=== PATIENT | male | born 1970 | race Caucasian/White ===

== ENCOUNTER 2023-01-27 04:39 | Inpatient (IN) | payer MEDICARE, SELFPAY ==
[2023-01-27 04:49] VITALS: BP 125/88; PULSE 77; RESP 20; TEMP 36.5; O2SAT 99
[2023-01-27 05:19] VITALS: BMI 19.3
--- NOTE | 2023-01-27 05:45 | PC.ADMIT ---
[email or web address] [facility] Admission Note: The patient,Giuliano Lorenzo,52 y/o, was given written information regarding hospital policies, unit procedures and contact persons. Patient's smoking status: . Vital Signs - 8 hr 01/27/23 04:48 01/27/23 04:49 01/27/23 05:25 Temperature 97.7 F Pulse Rate 77 Respiratory Rate 20 H Blood Pressure 125/88 Pulse Oximetry 99 DIRECT ADMIT FROM [facility], TRANSPORTED VIA EMS TO NPU AT 0437. PT IS VOLUNTARY WITH AFFIDAVIT ON FILE. ON ADMISSION PT VERBALIZED THE NAME WAS INCORRECT. PT STATES SHE HAD HER NAME CHANGED FROM LAYTON TO GIULIANO YEARS AGO AND IS TRANSGENDER AND PREFERS SHE,HER PRONOUNS. PT STATES YESTERDAY SHE WAS UNABLE TO GET [facility] OUT OF THE BANK DUE TO NOT HAVING AN ID AND BECAME VERY FRUSTRATED AND WANTED TO DESTROY US BANK. PT ALSO REPORTS SHE HAD INCREASED AND INTENSE FEELINGS OF SUICIDE AND HAD A PLAN TO GO TO [facility] AND JUMP OFF IT TO END HER LIFE. PT REPORTS HER GRANDSON IS IN FOSTER CARE AND SHE IS HAVING A LOT OF LIFE STRESSORS. PT STATES [place]OM[place] THE [place]ST [place]ARS AND JUST GOT BACK TO [place] A WEEK AGO. PT REPORTS USING THC AND METH IN HER PAST BUT ONLY USES MARIJAUNA OCCASSIONALLY NOW,LAST USE 5 DAYS AGO, UDS POSITIVE FOR THC. PT CONTINUES TO ENDORSE SI WITH NO CURRENT PLAN, STATES SHE JUST WANTS TO GET HELP. DENIES HI AND VH ENDORSES AH, HEARS HER BROTHERS VOICE AND SOMETIME HE TALKS TO HER. PT HAS NKDA AND TAKES NO MEDICATIONS ON A ROUTINE BASIS. LAST BM WAS 01/26/23, DENIES PAIN. SKIN ASSESSMENT REVEALS MULTIPLE TATTOOS, NO SKIN ISSUES OBSERVED. PT STATES SHE HAS BEEN DIAGNOSED WITH BIPOLAR, ANXIETY, DEPRESSION AND SCHITZOAFFECTIVE DISORDER IN HER PAST. REPORTS MULTIPLE PSYCHIATRIC ADMISSIONS AT THE [facility] [place], THE LAST ADMISSION BEING 6-8 MONTHS AGO. RATES ANXIETY 8/10 AND DEPRESSION 8/10. MADE AWARE OF PT ARRIVAL, NEW ORDERS WERE RECEIVED. PT WAS ORIENTATED TO UNIT. VISTARIL 50 MG WAS GIVEN ORDERED FOR INCREASED ANXIETY. ALL QUESTIONS ANSWERED AND SUPPORT WAS VOICED. Oxygen Delivery Method Room Air Room Air Room Air
--- NOTE | 2023-01-27 10:01 | PC.NURSE ---
Patient denies avh this morning. Patient endorses feeling of worthlessness and not wanting to live, but says she would not act on it. She says she does feel homicidal towards political figures because she has seen a lot as a homeless person in [place] and feels the system is not doing its job and doesn't care. However, patient does say she would never actually harm someone. Denies any current needs at this time and says she does feel better this morning because she feels safe here.
--- NOTE | 2023-01-27 13:36 | P.NPUHP_ITS ---
Providers/Chief Complaint Admitting Physician: George Dunaway MD Chief Complaint: SI HPI NPU History of Present Illness Hever Lorenzo is a 52 year old transgender female who presented to the emergency department at [facility] in [facility] after the patient had been brought in by police as he had been found to be suicidal. The patient had stated that he was going to walk over to the [place] and throw himself off of the bridge and onto a truck but stated that he would rather go to the hospital instead. The patient was transferred to the neuropsychiatric unit and [facility] in [facility] for further evaluation and treatment. He reports that he had a significant argument with his daughter and was frustrated when he went to a bank and was only able to take out $50 and became increasingly frustrated to the point that he felt like he was going to end his life. He reports a history of mood swings and endorsed a past history of manic symptoms. He endorses a history of racing thoughts decreased need for sleep and intense periods of irritability. He also reports a history of depressed mood with reports of previous episodes of depression. He reports that he had previously been diagnosed with bipolar disorder and had not been on medications for several years. Patient reports that he had previously used methamphetamine to stay awake but states that he stopped using several months ago. He reports recently moving back to [place] after spending the last 2 years living in [place] where he was frequently homeless. Patient endorses current sleep continuity disruption. He reports a history of infrequent suicidal thoughts as well. He reports that the best medication that it ever helped him in the past was lithium. He endorses having periods where he has intense bursts of high energy with diminished need for sleep and intense grandiose ideas that may last up to a week. His reported having bipolar disorder for many years of his life. Inpatient hospitalizations: He reports several hospitalizations in adulthood including many recent hospitalizations and [facility] and also reports previously of having been hospitalized in [facility] more than 2 years ago. He had reported a history of suicide attempts. He had reported previous diagnosis of bipolar disorder. Outpatient psychiatric history: None currently Drug and alcohol history: He reports no active drug use although he had reported having used methamphetamine in the past and reports active cannabis use. He reports no history of drug or alcohol treatment. Medical history: None Surgical history: None Allergies: No known drug allergies history: The patient received honorable discharge and served time in the [place] from [id number]. Family psychiatric history: Unknown Current medications: None Social history: Patient was born in [facility] and raised by his biological parents until his parents at the age of 12. He had reported having graduated from [employer] to high school and had attended some college. He had also finished attending [employer]. He is reported to be identified as a transgender female. He reports having previously been and currently lives with his ex- and has a 23-year-old daughter who has significant addiction issues. He did not report any history of sexual physical or emotional abuse. He reports he is currently on disability for some medical issues associated with mercury exposure during his time service. Meds NPU Home Medications Medication Instructions Recorded Confirmed Last Taken Type No Known Home Medications 01/27/23 01/27/23 Unknown History Allergies Allergy/AdvReac Type Severity Reaction Status Date / Time No Known Allergies Allergy Verified 01/27/23 04:56 Mental Status Exam MSE Comments: He is a casually dressed thin white male who appeared his stated age. He was pleasant and cooperative on interview. His speech showed evidence of increased pressure, with normal volume. There was no evidence of any abnormal involuntary motor movements tics or tremors appreciated. There is no evidence of psychomotor agitation or psychomotor retardation. His mood was described as depressed. His affect appeared oddly labile with some periods of increased euphoria. His thought process was linear logical and goal-directed. His thought content showed no evidence of active homicidal ideation. He had endorsed suicidal ideation with a plan. He did not appear to be responding to internal stimuli. There was no clear evidence of delusional thinking. There was a hint of mild grandiosity and some overvalued ideas noted. His insight was partial. His judgment was poor. His impulse control appeared limited. His recent and remote memory appear grossly intact. Vitals/I&O/Wt Last Vital Signs Temp 97.7 F 01/27/23 04:49 Pulse 77 01/27/23 04:49 Resp 20 H 01/27/23 04:49 BP 125/88 01/27/23 04:49 Pulse Ox 99 01/27/23 04:49 O2 Del Method Room Air 01/27/23 05:25 Weight last 48 hrs Weight 61.235 kg Weight 61.235 kg A&P Assessment and plan (1) Bipolar disorder current episode depressed: Plan 52-year-old male with history of bipolar disorder currently endorsing depressed mood with some mixed mood symptoms. The patient had reported benefits from lithium in the past and was agreeable to restarting this medication. 1. Encourage individual, group and milieu therapy. 2. Recommend sober living treatment at the highest level of care to which the patient is willing to commit. 3. Continue q-15 minute checks for safety.? 4.? Start [place] 300mg bid. 5.? Will attempt to gather collateral information. Involuntary Hold Information 96 Hour Hold: 96 Hour Involuntary Admission: No Attestations NPU Medical Necessity Statement*: Inpatient hospitalization is medically necessary and deemed to be the clinically appropriate intervention at this time. The patient will be started on medications and these medications will be adjusted as clinically indicated. The patient will be hospitalized for at least 2 midnights. His likely length of stay is 3 to 7 days. Coding Level of Care Code Acute Code for Elsie Bella Diagnoses Bipolar disorder current episode depressed F31.30
[2023-01-27 16:00] VITALS: BP 109/76; PULSE 101; RESP 12; TEMP 36.8; O2SAT 98
[2023-01-27] MEDS: lithium carbonate 300 mg Capsule PO (17:52)
[2023-01-27 21:26] VITALS: BP 120/80; PULSE 113; RESP 18; TEMP 36.8; O2SAT 97
[2023-01-28] MEDS: hyDROXYzine 25 mg Capsule 50 MG PO (01:50)
[2023-01-28 06:00] VITALS: BP 119/79; PULSE 92; RESP 18; O2SAT 97
[2023-01-28] MEDS: lithium carbonate 300 mg Capsule PO ×2 (08:20→17:41)
--- NOTE | 2023-01-28 12:10 | P.NPUPN_ITS ---
Subjective NPU Subjective: Patient presented today reporting that he is feeling a little better. He reports he has been off of his medication for some time and was happy to have the lithium restarted. He reports a history of success on the lithium. He reports that it had been a while since he had been taking medication regularly. We discussed being methodical and making sure that he was improved before discharge. Mental Status Exam MSE Comments: This is a slender white male in hospital scrubs with limited grooming and adequate eye contact. No abnormal movements except for mild psychomotor retardation. Cooperative with exam in mild distress. His speech showed evidence of increased pressure, with normal volume. His mood was described as depressed, but a little better. His affect appeared oddly labile with some periods of increased euphoria. His thought process was linear logical and goal- directed. His thought content showed no evidence of active homicidal ideation. He had endorsed suicidal ideation with a plan. He did not appear to be responding to internal stimuli. There was no clear evidence of delusional thinking. There was a hint of mild grandiosity and some overvalued ideas noted. His insight was limited. His judgment was poor. His impulse control appeared limited. Attention and concentration were mostly intact and memory was mostly intact but none were formally tested. Vitals/I&O/Wt Last Vital Signs Temp 98.2 F 01/27/23 21:26 Pulse 92 01/28/23 06:00 Resp 18 01/28/23 06:00 BP 119/79 01/28/23 06:00 Pulse Ox 97 01/28/23 06:00 O2 Del Method Room Air 01/27/23 16:00 Weight last 48 hrs Weight 61.235 kg Weight 61.235 kg A&P Assessment and plan (1) Bipolar disorder current episode depressed: Plan 52-year-old male with history of bipolar disorder currently endorsing depressed mood with some mixed mood symptoms. The patient had reported benefits from lit hium in the past and was agreeable to restarting this medication. 1. Encourage individual, group and milieu therapy. 2. Recommend sober living treatment at the highest level of care to which the patient is willing to commit. 3. Continue q-15 minute checks for safety.? 4.? Started [place] 300mg bid. 5.? Will attempt to gather collateral information. Involuntary Hold Information 96 Hour Hold: 96 Hour Involuntary Admission: No Attestations NPU Medical Necessity Statement*: Inpatient hospitalization is medically necessary and deemed to be the clinically appropriate intervention at this time. The patient will be started on medications and these medications will be adjusted as clinically indicated. His likely length of stay is 3 to 6 days. Coding Level of Care Code Acute Code for Chg Fwd Diagnoses Bipolar disorder current episode depressed F31.30
[2023-01-28 14:00] VITALS: BP 117/78; PULSE 93; RESP 18; TEMP 36.8; O2SAT 98
[2023-01-28 20:00] VITALS: BP 112/76; PULSE 93; RESP 18; TEMP 36.7; O2SAT 98
[2023-01-28] MEDS: trazodone 50 mg Tablet PO (22:11)
[2023-01-29 06:00] VITALS: BP 107/74; PULSE 95; RESP 16; TEMP 36.4; O2SAT 95
[2023-01-29] MEDS: acetaminophen 325 mg Tablet 650 MG PO (06:41)
[2023-01-29] MEDS: lithium carbonate 300 mg Capsule PO ×2 (08:27→18:08)
--- NOTE | 2023-01-29 12:09 | W.PM.NPUPNS ---
Subjective NPU Subjective: Patient presented today reporting that he is feeling better. He reports that he is sleeping well and feels he is adjusting to the lithium. He reports he thinks he is thinking more clearly. He denies any side effects to the medication and denied any issues with eating staff reports appropriate eating and sleeping. Mental Status Exam MSE Comments: This is a slender white male in hospital scrubs with limited grooming and adequate eye contact. No abnormal movements except for mild psychomotor retardation. Cooperative with exam in mild distress. His speech showed evidence of increased pressure, with normal volume. His mood was described as depressed, but a little better. His affect appeared oddly labile with some periods of increased euphoria. His thought process was linear logical and goal-directed. His thought content showed no evidence of active homicidal ideation. He had endorsed suicidal ideation with a plan. He did not appear to be responding to internal stimuli. There was no clear evidence of delusional thinking. There was a hint of mild grandiosity and some overvalued ideas noted. His insight was limited. His judgment was poor. His impulse control appeared limited. Attention and concentration were mostly intact and memory was mostly intact but none were formally tested. Vitals/I&O/Wt Last Vital Signs Temp 97.6 F 01/29/23 06:00 Pulse 95 01/29/23 06:00 Resp 16 01/29/23 06:00 BP 107/74 01/29/23 06:00 Pulse Ox 95 01/29/23 06:00 O2 Del Method Room Air 01/29/23 06:00 Weight last 48 hrs Weight 61.235 kg Weight 61.235 kg A&P Assessment and plan (1) Bipolar disorder current episode depressed: Plan 52-year-old male with history of bipolar disorder currently endorsing depressed mood with some mixed mood symptoms. The patient had reported benefits from lithium in the past and was agreeable to restarting this medication. 1. Encourage individual, group and milieu therapy. 2. Recommend sober living treatment at the highest level of care to which the patient is willing to commit. 3. Continue q-15 minute checks for safety.? 4.? Started [place] 300mg bid. 5.? Will attempt to gather collateral information. Involuntary Hold Information 96 Hour Hold: 96 Hour Involuntary Admission: No Attestations NPU Medical Necessity Statement*: Inpatient hospitalization is medically necessary and deemed to be the clinically appropriate intervention at this time. The patient will be started on medications and these medications will be adjusted as clinically indicated. His likely length of stay is 2-5 days. Coding Level of Care Code Acute Code for g Fwd Diagnoses Bipolar disorder current episode depressed F31.30
[2023-01-29 14:00] VITALS: BP 109/74; PULSE 87; RESP 14; TEMP 36.8; O2SAT 96
[2023-01-29 19:41] VITALS: BP 109/67; PULSE 82; RESP 16; TEMP 36.9; O2SAT 95
[2023-01-29] MEDS: trazodone 50 mg Tablet PO (20:52)
[2023-01-30 06:00] VITALS: BP 118/83; PULSE 98; RESP 15; TEMP 36.7; O2SAT 95
[2023-01-30] MEDS: lithium carbonate 300 mg Capsule PO ×2 (08:34→20:07)
[2023-01-30] MEDS: acetaminophen 325 mg Tablet 650 MG PO ×2 (09:10→14:38)
--- NOTE | 2023-01-30 09:21 | W.PM.NPUPNS ---
Subjective NPU Subjective: Patient presented today reporting that things are going fine. He endorsed that the medication is working well and he is starting to feel more calm and focused. He reports he looks forward to getting back to being himself. We talked about the social work team returning tomorrow and is starting to have a plan for what is next for him. He reports looking forward to leaving when it is appropriate. Mental Status Exam MSE Comments: This is a slender white male in hospital scrubs with limited grooming and adequate eye contact. No abnormal movements except for mild psychomotor retardation. Cooperative with exam in mild distress. His speech showed evidence of increased pressure, with normal volume. His mood was described as depressed, but a little better. His affect appeared oddly labile with some periods of increased euphoria. His thought process was linear logical and goal-directed. His thought content showed no evidence of active homicidal ideation. He had endorsed suicidal ideation with a plan. He did not appear to be responding to internal stimuli. There was no clear evidence of delusional thinking. There was a hint of mild grandiosity and some overvalued ideas noted. His insight was limited. His judgment was poor. His impulse control appeared limited. Attention and concentration were mostly intact and memory was mostly intact but none were formally tested. Vitals/I&O/Wt Last Vital Signs Temp 98.0 F 01/30/23 06:00 Pulse 98 01/30/23 06:00 Resp 15 01/30/23 06:00 BP 118/83 01/30/23 06:00 Pulse Ox 95 01/30/23 06:00 O2 Del Method Room Air 01/30/23 06:00 Weight last 48 hrs Weight 61.235 kg Weight 61.235 kg A&P Assessment and plan (1) Bipolar disorder current episode depressed: Plan 52-year-old male with history of bipolar disorder currently endorsing depressed mood with some mixed mood symptoms. The patient had reported benefits from lithium in the past and was agreeable to restarting this medication. 1. Encourage individual, group and milieu therapy. 2. Recommend sober living treatment at the highest level of care to which the patient is willing to commit. 3. Continue q-15 minute checks for safety.? 4.? Started [place] 300mg bid. 5.? Will attempt to gather collateral information. Involuntary Hold Information 96 Hour Hold: 96 Hour Involuntary Admission: No Attestations NPU Medical Necessity Statement*: Inpatient hospitalization is medically necessary and deemed to be the clinically appropriate intervention at this time. The patient will be started on medications and these medications will be adjusted as clinically indicated. His likely length of stay is 2-4 days. Coding Level of Care Code Acute Code for Chg Fwd Diagnoses Bipolar disorder current episode depressed F31.30
[2023-01-30 14:00] VITALS: BP 113/51; PULSE 85; RESP 20; TEMP 36.6; O2SAT 100
[2023-01-30] MEDS: OLANZapine 5 mg ODT PO ×2 (14:38→20:06)
--- NOTE | 2023-01-30 14:51 | PC.NURSE ---
PRN ZYPREXA ZYDIS 5 MG GIVEN PO SUBLINGUAL PER PT C/O STATED ANXIETY/AGITATION. TEARFUL IN ROOM, AGITATED WITH FAMILY MEMBERS, C/O HEADACHE PAIN, PRN TYLENOL GIVEN. STAFF WILL CONT TO MONITOR
[2023-01-30] MEDS: ondansetron 4 MG Tablet PO (14:58)
--- NOTE | 2023-01-30 16:27 | PC.NURSE ---
PT WAS GIVEN ODANSETRON PER PROTOCOL FOR N/V. PT STATES THAT THEY HAVE A MIGRAINE AND THE N/V COMES WITH IT. PT RESTED IN BED UNTIL 1615 THEN BEGAN VOMITING AGAIN. PT STATED THAT HE DOES NOT CURRENTLY WISH TO HAVE ANY OTHER PRN MEDICATIONS AT THIS TIME. PT REQUESTED ICE WATER AND RECEIVED THIS.
[2023-01-30] MEDS: ibuprofen 600 mg Tablet PO (20:06)
[2023-01-30] MEDS: promethazine 25 mg/mL SDV 1 mL IM (20:06)
[2023-01-30] MEDS: trazodone 50 mg Tablet PO (20:07)
[2023-01-30 20:09] VITALS: BP 136/86; PULSE 93; RESP 18; TEMP 36.3; O2SAT 96
--- NOTE | 2023-01-30 21:41 | PC.NURSE ---
PT OBSERVED TO BE LAYING IN BED ROLLING AROUND YELLING I DON'T WANT TO LIVE, PEOPLE SHOULD BE ALLOWED TO JUST KILL THEMSELVES. MY HEAD HURTS SO BAD AND NOTHING IS HELPING I JUST WANT TO . PT ENDORSES SI BUT DOES NOT DISCLOSE ANY KIND OF PLAN. PT STATES I ALWAYS FEEL LIKE THIS. RN ASSURED PT THAT THIS RN WOULD GIVE HER SOMETHING FOR HER HEAD, PT VOICED THANKS. PT ALSO REQUEST SOMETHING FOR PAIN, SLEEP AND ANXIETY. PT DENIES HI BUT STATES SHE HAS ALWAYS HAD FEELINGS THAT SHE WANTED TO HURT HER DAUGHTERS BOYFRIEND BUT ONLY HAS VAGUE FEELINGS NO PLAN. DENIES AVH AT THIS TIME. REPORTS PAIN 08/15 RATES ANXIETY AND DEPRESSION 11/15. PT WAS GIVEN PHENERGAN 25 MG IM ORDERED FOR NAUSEA AND VOMITING. PT REQUESTED TO WAIT A FEW MINUTES AFTER TAKING THE PHENERGAN TO TAKE HIS OTHER MEDS. PT WAS GIVEN IBUPROFEN 600 MG FOR PAIN, ZYDIS 5 MG FOR INCREASED ANXIETY AND AGITATION AND TRAZODONE 50 MG FOR SLEEP. PT SPOKE TO NURSE AT LENGTH ABOUT HAVING THESE NEGATIVE FEELINGS. AFTER ABOUT 45 MINUTES PT CAME BACK TO NURSES STATION AND APOLAGIZED STATING I WAS JUST SAYING THAT ABOUT WANTING TO BECAUSE MY HEAD HURT SO BAD, BUT I'M BETTER NOW, PT THEN WAS GIVEN A TRAY OF FOOD TO EAT AND A SANDWICH, ATE 100 %, ALL QUESTIONS ANSWERED AND SUPPORT VOICED.
--- NOTE | 2023-01-31 05:09 | PC.NURSE ---
PT WAS GIVEN IBUPROFEN 600 MG AT THE BEGINNING OF SHIFT AND PHENERGAN 25 MG IM FOR NAUSEA AND VOMITING DUE TO HAVING A MIGRAINE. PT HAS RESTED THROUGHOUT THE SHIFT. PT WAS ALSO GIVEN ZYDIS 5 MG FOR ANXIETY AND TRAZODONE 50 MG FOR INSOMNIA. ALL MEDICATIONS DEEMED EFFECTIVE. PT IS CURRENTLY PAIN FREE AND HAS SLEPT APPROXIMATELY 9 HOURS LAST NIGHT THROUGH THE SHIFT.
[2023-01-31 06:00] VITALS: RESP 16
[2023-01-31] MEDS: lithium carbonate 300 mg Capsule PO ×2 (08:42→19:56)
[2023-01-31 14:00] VITALS: BP 129/76; PULSE 95; RESP 18; TEMP 36.9; O2SAT 100
--- NOTE | 2023-01-31 18:46 | W.PM.NPUPNS ---
Subjective NPU Subjective: Patient presented today reporting that things are going better. He endorsed that the medication is working well. He reports he looks forward to getting back home. We talked about working with the social work team about discharge in next 48 hours. Mental Status Exam MSE Comments: This is a slender white male in hospital scrubs with limited grooming and adequate eye contact. No abnormal movements except for mild psychomotor retardation. Cooperative with exam in mild distress. His speech showed evidence of increased pressure, with normal volume. His mood was described as better. His affect appeared odd but congruent. His thought process was linear logical and goal-directed. His thought content had no suicidal or homicidal ideation. He did not appear to be responding to internal stimuli. There was no clear evidence of delusional thinking. His insight was limited. His judgment was poor. His impulse control appeared limited. Attention and concentration were mostly intact and memory was mostly intact but none were formally tested. Vitals/I&O/Wt Last Vital Signs Temp 98.2 F 01/31/23 20:01 Pulse 94 01/31/23 20:01 Resp 18 01/31/23 20:01 BP 124/84 01/31/23 20:01 Pulse Ox 99 01/31/23 20:01 O2 Del Method Room Air 01/31/23 20:01 A&P Assessment and plan (1) Bipolar disorder current episode depressed: Plan 52-year-old male with history of bipolar disorder currently endorsing depressed mood with some mixed mood symptoms. The patient had reported benefits from lithium in the past and was agreeable to restarting this medication. 1. Encourage individual, group and milieu therapy. 2. Recommend sober living treatment at the highest level of care to which the patient is willing to commit. 3. Continue q-15 minute checks for safety.? 4.? Started [place] 300mg bid. 5.? Will attempt to gather collateral information. Involuntary Hold Information 96 Hour Hold: 96 Hour Involuntary Admission: No Attestations NPU Medical Necessity Statement*: Inpatient hospitalization is medically necessary and deemed to be the clinically appropriate intervention at this time. The patient will be started on medications and these medications will be adjusted as clinically indicated. His likely length of stay is 1-3 days. Coding Level of Care Code Acute Code for [facility] Diagnoses Bipolar disorder current episode depressed F31.30
[2023-01-31] MEDS: trazodone 50 mg Tablet PO (19:56)
[2023-01-31 20:01] VITALS: BP 124/84; PULSE 94; RESP 18; TEMP 36.8; O2SAT 99
[2023-02-01 06:00] VITALS: RESP 15
[2023-02-01 07:43] LABS: Lithium 0.4 mmol/L (0.6-1.2)
[2023-02-01] MEDS: lithium carbonate 300 mg Capsule PO ×2 (09:51→21:14)
[2023-02-01] MEDS: hyDROXYzine 25 mg Capsule 50 MG PO ×2 (09:53→21:15)
--- NOTE | 2023-02-01 12:11 | DCPLANNER ---
IMM was printed and given to patient and a copy was placed in pts file.
[2023-02-01] MEDS: BuSPIRONE 10 mg Tablet PO ×2 (13:06→18:34)
--- NOTE | 2023-02-01 13:11 | PC.NURSE ---
yelling at staff, upset because he was set up for an appointment on his birthday. stated to this nurse that he won't make it to that appointment because he is going to kill himself. Dr. Dunaway notified of this.
[2023-02-01 14:00] VITALS: BP 124/84; PULSE 82; RESP 16; TEMP 36.8; O2SAT 100
--- NOTE | 2023-02-01 14:37 | P.NPUPN_ITS ---
Subjective NPU Subjective: Patient presented today reporting that there is more irritability and adverse suicidal feelings to staff. Discussed slowing down to show process and consider increasing the lithium which had been subtherapeutic at 0.4. We discussed checking lithium a day early with the thought of discharge so not wanting to adjust it too aggressively. We discussed working with Dr. Byrd patient on changes and considerations for discharge tomorrow. Mental Status Exam MSE Comments: This is a slender white male in hospital scrubs with limited grooming and adequate eye contact. No abnormal movements except for mild psychomotor retardation. Cooperative with exam in mild distress. His speech showed more normal rate and volume. His mood was described as irritable. His affect appeared odd but congruent. His thought process was linear logical and goal- directed. His thought content had suicidal but no homicidal ideation. He did not appear to be responding to internal stimuli. There was no clear evidence of delusional thinking. His insight was limited. His judgment was poor. His impulse control appeared limited. Attention and concentration were mostly intact and memory was mostly intact but none were formally tested. Vitals/I&O/Wt Last Vital Signs Temp 98.2 F 01/31/23 20:01 Pulse 94 01/31/23 20:01 Resp 15 02/01/23 06:00 BP 124/84 01/31/23 20:01 Pulse Ox 99 01/31/23 20:01 O2 Del Method Room Air 01/31/23 20:01 A&P Assessment and plan (1) Bipolar disorder current episode depressed: Plan 52-year-old male with history of bipolar disorder currently endorsing depressed mood with some mixed mood symptoms. The patient had reported benefits from lithium in the past and was agreeable to restarting this medication. 1. Encourage individual, group and milieu therapy. 2. Recommend sober living treatment at the highest level of care to which the patient is willing to commit. 3. Continue q-15 minute checks for safety.? 4.? Started Lorimor 300mg bid. Likely increasing the evening dose. 5.? Will attempt to gather collateral information. Involuntary Hold Information 96 Hour Hold: 96 Hour Involuntary Admission: No Attestations NPU Medical Necessity Statement*: Inpatient hospitalization is medically necessary and deemed to be the clinically appropriate intervention at this time. The patient will be started on medications and these medications will be adjusted as clinically indicated. His likely length of stay is 2-4 days. Coding Level of Care Code Acute Code for [facility] Fwd Diagnoses Bipolar disorder current episode depressed F31.30
[2023-02-01 20:29] VITALS: BP 132/84; PULSE 88; RESP 20; TEMP 36.8; O2SAT 98
[2023-02-01] MEDS: trazodone 50 mg Tablet PO (21:15)
--- NOTE | 2023-02-01 21:34 | PC.NURSE ---
IN DAY ROOM, REPORTS SHE WAS LEAVING TODAY BUT I THREW A FIT BECAUSE THE FORKLIFT OPERATOR WAS PISSING ME OFF SO NOW I HAVE TO STAY. PT STATES SHE IS CALM NOW AND REGRETS EARLIER ACTIONS. DENIES SI/HI AND AVH AT THIS TIME./ DENIES PAIN. PT HAS ANIMATED SPEECH AND IS STATING SHE IS FAMOUS AND IF WE WOULD GOOGLE HER THEN WE WOULD ALL SEE THAT SHE IS VERY FAMOUS. PT IS NOTED TO HAVE RAPID, PRESSURED EXCESSIVE SPEECH WHEN SPEAKING ABOUT HER FAME. PT REQUESTS TRAZODONE TO HELP HER SLEEP AND ANXIETY MEDS FOR ANXIETY RATED 6/10, RATES DEPRESSION 5/10. PT WAS GIVEN TRAZODONE 50 MG FOR INSOMNIA AND VISTARIL 50 MG FOR INCREASED ANXIETY. ALL QUESTIONS ANSWERED AND SUPPORT WAS VOICED.
[2023-02-02 06:00] VITALS: BP 123/80; PULSE 82; RESP 17; TEMP 36.5; O2SAT 98
--- NOTE | 2023-02-02 09:42 | PC.NURSE ---
Patient refusing buspar this morning. She states she believes this is what is causing her to have nightmares and that it is increasing her anxiety, so she does not want to take it until she talks to the doctor.
[2023-02-02] MEDS: lithium carbonate 300 mg Capsule PO (10:57)
[2023-02-02 14:00] VITALS: BP 129/87; PULSE 60; RESP 14; TEMP 36.4; O2SAT 97
--- NOTE | 2023-02-02 18:33 | PC.NURSE ---
Patient refused 1800 dose of buspar. She continues to say she believes it worsens her anxiety.
--- NOTE | 2023-02-02 19:18 | P.NPUPN_ITS ---
Subjective NPU Subjective: 52-year-old transgender female with bipolar disorder currently on lithium. The patient had reported that she felt very anxious and irritable when taking the BuSpar. Patient's lithium level was subtherapeutic and she reported that the mood stabilizer lithium had been very helpful for her for managing her manic symptoms as well as helping for depression. She continues to endorse feeling depressed. She had been more hopeful about returning home soon and stated that she would like to continue with lithium on an outpatient basis. She continued to isolate herself on the milieu. She reported no feelings of hopelessness today. Mental Status Exam MSE Comments: She is a casually dressed thin white female who appeared his stated age. She was pleasant and cooperative on interview. His speech showed evidence of increased pressure, with normal volume. There was no evidence of any abnormal involuntary motor movements tics or tremors appreciated. There is no evidence of psychomotor agitation or psychomotor retardation. Her mood was described as depressed. Her affect remained flat. Herthought process was linear logical and goal-directed. Her thought content showed no evidence of active homicidal ideation. She had endorsed no suicidal ideation with no plan. She did not appear to be responding to internal stimuli. There was no clear evidence of delusional thinking. There was a hint of mild grandiosity and some overvalued ideas noted. Her insight was partial. Her judgment was poor. Her impulse control appeared limited. Her recent and remote memory appear grossly intact. Vitals/I&O/Wt Last Vital Signs Temp 97.6 F 02/02/23 14:00 Pulse 60 02/02/23 14:00 Resp 14 02/02/23 14:00 BP 129/87 02/02/23 14:00 Pulse Ox 97 02/02/23 14:00 O2 Del Method Room Air 02/02/23 06:00 A&P Assessment and plan (1) Bipolar disorder current episode depressed: Plan 52-year-old transgender female with history of bipolar disorder currently endorsing depressed mood with some mixed mood symptoms. The patient had reported benefits from lithium in the past and was agreeable to restarting this medication. 1. Encourage individual, group and milieu therapy. 2. Recommend sober living treatment at the highest level of care to which the patient is willing to commit. 3. Continue q-15 minute checks for safety.? 4.? Increase lithium to 300mg in am, 450mg at night. 5.? Will attempt to gather collateral information. Involuntary Hold Information 96 Hour Hold: 96 Hour Involuntary Admission: No Attestations NPU Medical Necessity Statement*: Inpatient hospitalization is medically necessary and deemed to be the clinically appropriate intervention at this time. The patient will be started on medications and these medications will be adjusted as clinically indicated. His likely length of stay is 2-4 days. Coding Level of Care Code Acute Code for [facility] Fwd Diagnoses Bipolar disorder current episode depressed F31.30
[2023-02-02 20:30] VITALS: BP 141/88; PULSE 101; RESP 18; TEMP 36.8; O2SAT 98
[2023-02-02] MEDS: trazodone 50 mg Tablet PO (20:59)
[2023-02-02] MEDS: lithium carbonate ER 450 mg Tablet PO (21:09)
--- NOTE | 2023-02-02 23:56 | PC.NURSE ---
PT WAS GIVEN TRAZODONE 50 MG REQUESTED FOR INSOMNIA. PT FELL ASLEEP AT APPROXIMATELY 2330, CONTINUES TO SLEEP MEDICATION EFFECTIVE.
[2023-02-03 05:56] VITALS: RESP 17
[2023-02-03] MEDS: OLANZapine 5 mg ODT PO (06:08)
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
[2023-02-03] MEDS: lithium carbonate 300 mg Capsule PO (10:28)
[2023-02-03] MEDS: acetaminophen 325 mg Tablet 650 MG PO (12:44)
[2023-02-03 14:00] VITALS: BP 119/74; PULSE 82; RESP 13; O2SAT 100
--- NOTE | 2023-02-03 15:16 | DCPLANNER ---
IMM was printed and given to patient and a copy was placed in pts file
--- NOTE | 2023-02-03 17:59 | PC.NURSE ---
patient refused morning and evening buspirone. patient states that he thinks the medication makes him blow up
--- NOTE | 2023-02-03 19:07 | W.PM.NPUPNS ---
Subjective NPU Subjective: 52-year-old transgender female with bipolar disorder currently on lithium. Patient had another verbal outburst today. He had reported that he had a bizarre dream. He had reported that he felt that his depression was getting better. Staff notes patient had isolated himself on the milieu. He had reported no excess fatigue. He had denied any racing thoughts at this time. He did report having problems with irritability and stated that he often had mixed mood symptoms with overlapping depression and chad Mental Status Exam MSE Comments: She is a casually dressed thin white female who appeared his stated age. She was pleasant and cooperative on interview. Her speech was normal in regards to rate rhythm and volume. There was no evidence of any abnormal involuntary motor movements tics or tremors appreciated. There is no evidence of psychomotor agitation or psychomotor retardation. Her mood was described as a little better. Her affect remained flat. Her thought process was linear logical and goal-directed. Her thought content showed no evidence of active homicidal ideation. She had endorsed no suicidal ideation with no plan. She did not appear to be responding to internal stimuli. There was no clear evidence of delusional thinking. Her insight was partial. Her judgment was poor. Her impulse control remained poor. Her recent and remote memory appear grossly intact. Vitals/I&O/Wt Last Vital Signs Temp 98.2 F 02/02/23 20:30 Pulse 82 02/03/23 14:00 Resp 13 02/03/23 14:00 BP 119/74 02/03/23 14:00 Pulse Ox 100 02/03/23 14:00 O2 Del Method Room Air 02/02/23 06:00 A&P Assessment and plan (1) Bipolar disorder current episode depressed: Plan 52-year-old transgender female with history of bipolar disorder currently endorsing depressed mood with some mixed mood symptoms. The patient had reported benefits from lithium in the past and was agreeable to restarting this medication. 1. Encourage individual, group and milieu therapy. 2. Recommend sober living treatment at the highest level of care to which the patient is willing to commit. 3. Continue q-15 minute checks for safety.? 4.? Continue lithium to 300mg in am, 450mg at night. Involuntary Hold Information 96 Hour Hold: 96 Hour Involuntary Admission: No Attestations NPU Medical Necessity Statement*: Inpatient hospitalization is medically necessary and deemed to be the clinically appropriate intervention at this time. The patient will be started on medications and these medications will be adjusted as clinically indicated. Her likely length of stay is 4 days. Coding Level of Care Code Acute Code for g Fwd Diagnoses Bipolar disorder current episode depressed F31.30
[2023-02-03] MEDS: lithium carbonate ER 450 mg Tablet PO (20:30)
[2023-02-03 21:01] VITALS: BP 121/78; PULSE 92; RESP 18; TEMP 36.6; O2SAT 98
[2023-02-04 06:00] VITALS: BP 125/79; PULSE 107; RESP 18; TEMP 36.7; O2SAT 96
[2023-02-04] MEDS: lithium carbonate 300 mg Capsule PO (08:46)
[2023-02-04] MEDS: ibuprofen 600 mg Tablet PO ×2 (11:58→20:39)
--- NOTE | 2023-02-04 13:30 | W.PM.NPUPNS ---
Subjective NPU Subjective: 52-year-old transgender female with bipolar disorder currently on lithium. Patient reported no side effects from his lithium. He had reported some sleep continuity disruption. He denied any racing thoughts. He did report feeling more comfortable about returning to live back with his ex . Patient had continued to report that his depression was getting better with the lithium but stated that he continued to have brief episodes of intense sadness. He continued to isolate himself on the milieu. Mental Status Exam MSE Comments: She is a casually dressed thin white female who appeared his stated age. She was pleasant and cooperative on interview. Her speech was normal in regards to rate rhythm and volume. There was no evidence of any abnormal involuntary motor movements tics or tremors appreciated. There is no evidence of psychomotor agitation or psychomotor retardation. Her mood was described as okay today. Her affect was restricted. Her thought process was linear logical and goal-directed. Her thought content showed no evidence of active homicidal ideation. She had endorsed no suicidal ideation with no plan. She did not appear to be responding to internal stimuli. There was no clear evidence of delusional thinking. Her insight was partial. Her judgment was poor. Her impulse control remained poor. Her recent and remote memory appear grossly intact. Vitals/I&O/Wt Last Vital Signs Temp 98.1 F 02/04/23 06:00 Pulse 107 H 02/04/23 06:00 Resp 18 02/04/23 06:00 BP 125/79 02/04/23 06:00 Pulse Ox 96 02/04/23 06:00 O2 Del Method Room Air 02/04/23 06:00 A&P Assessment and plan (1) Bipolar disorder current episode depressed: Plan 52-year-old transgender female with history of bipolar disorder currently endorsing depressed mood with some mixed mood symptoms. The patient had reported benefits from lithium in the past and was agreeable to restarting this medication. 1. Encourage individual, group and milieu therapy. 2. Recommend sober living treatment at the highest level of care to which the patient is willing to commit. 3. Continue q-15 minute checks for safety.? 4.? Continue lithium to 300mg in am, 450mg at night. Involuntary Hold Information 96 Hour Hold: 96 Hour Involuntary Admission: No Attestations NPU Medical Necessity Statement*: Inpatient hospitalization is medically necessary and deemed to be the clinically appropriate intervention at this time. The patient will be started on medications and these medications will be adjusted as clinically indicated. Her likely length of stay is 4 days. Coding Level of Care Code Acute Code for g Fwd Diagnoses Bipolar disorder current episode depressed F31.30
[2023-02-04 14:00] VITALS: BP 113/69; PULSE 86; RESP 17; TEMP 36.6; O2SAT 97
[2023-02-04 17:45] LABS: Blood Urine Neg (Negative); Glucose Urine UA Norm (Normal); Ketones Urine Negative (Negative); Protein Urine Neg (Negative); Specific Gravity, Urine 1.015 (1.005-1.030); Urine Appearance SL Hazy (CLEAR); Urine Color Straw (Yellow); pH Urine 8 (5-7)
[2023-02-04 17:46] LABS: Add Urine Culture? Yes; Bacteria Urine 3+ /hpf; Bilirubin Urine Neg (Negative); Leukocyte Esterase Urine Negative (Negative); Nitrate Urine Positive (Negative); Squamous Epithelial Cell Urine RARE /hpf (0-5); Sulfosalicylic Acid Urine Negative (Negative); Urobilinogen Urine Norm (Negative)
[2023-02-04 19:46] VITALS: BP 124/86; PULSE 91; RESP 20; TEMP 36.9; O2SAT 97
[2023-02-04] MEDS: lithium carbonate ER 450 mg Tablet PO (20:40)
[2023-02-05 06:00] VITALS: BP 120/88; PULSE 85; RESP 20; TEMP 36.4; O2SAT 96
[2023-02-05] MEDS: lithium carbonate 300 mg Capsule PO (08:33)
--- NOTE | 2023-02-05 09:23 | PC.NURSE ---
IN BED RESTING AROUSES TO VOICE. PT DENIES SI/HI AND AVH AT THIS TIME. DENIES PAIN. RATES ANXIETY 5/10 AND DEPRESSION 2/10. COMPLIANT WITH MEDICATIONS. HAS LITHIUM LEVEL THAT IS DUE TOMORROW IN THE AM. ALL QUESTIONS ANSWERED AND SUPPORT VOICED.
[2023-02-05 14:00] VITALS: BP 124/83; PULSE 90; RESP 16; TEMP 36.7; O2SAT 99
--- NOTE | 2023-02-05 17:08 | P.NPUPN_ITS ---
Subjective NPU Subjective: 52-year-old transgender female with bipolar disorder currently on lithium. Patient reported no side effects from his lithium. He was quiet and cooperative on the milieu. He had no acts of aggression. SHe had reported improved sleep. SHe had reported no nightmares today. He stated that his goal was to remain on lithium as it had been helpful for her mood stabilization in the past. He reported increased urination but otherwise no side effects or preventative of the patient remaining compliant with her lithium. Mental Status Exam MSE Comments: She is a casually dressed thin white female who appeared her stated age. She was pleasant and cooperative on interview. Her speech was normal in regards to rate rhythm and volume. There was no evidence of any abnormal involuntary m otor movements tics or tremors appreciated. There is no evidence of psychomotor agitation or psychomotor retardation. Her mood was described as okay today. Her affect was restricted. Her thought process was linear logical and goal- directed. Her thought content showed no evidence of active homicidal ideation. She had endorsed no suicidal ideation with no plan. She did not appear to be responding to internal stimuli. There was no clear evidence of delusional thinking. Her insight was partial. Her judgment was poor. Her impulse control remained poor. Her recent and remote memory appear grossly intact. Vitals/I&O/Wt Last Vital Signs Temp 98.1 F 02/05/23 14:00 Pulse 90 02/05/23 14:00 Resp 16 02/05/23 14:00 BP 124/83 02/05/23 14:00 Pulse Ox 99 02/05/23 14:00 O2 Del Method Room Air 02/05/23 14:00 Weight last 48 hrs Weight 68.946 kg Weight 68.946 kg A&P Assessment and plan (1) Bipolar disorder current episode depressed: Plan 52-year-old transgender female with history of bipolar disorder currently endorsing depressed mood with some mixed mood symptoms. The patient had reported benefits from lithium in the past and was agreeable to restarting this medication. 1. Encourage individual, group and milieu therapy. 2. Recommend sober living treatment at the highest level of care to which the patient is willing to commit. 3. Continue q-15 minute checks for safety.? 4.? Continue lithium to 300mg in am, 450mg at night. 5. Discharge tommorow. Check labs, lithium level. Involuntary Hold Information 96 Hour Hold: 96 Hour Involuntary Admission: No Attestations NPU Medical Necessity Statement*: Inpatient hospitalization is medically necessary and deemed to be the clinically appropriate intervention at this time. The patient will be started on medications and these medications will be adjusted as clinically indicated. Her likely length of stay is 1-2 days. Coding Level of Care Code Acute Code for Chg Fwd Diagnoses Bipolar disorder current episode depressed F31.30
[2023-02-05 19:19] VITALS: BP 120/74; PULSE 84; RESP 16; TEMP 35.7; O2SAT 95
[2023-02-05] MEDS: lithium carbonate ER 450 mg Tablet PO (20:00)
[2023-02-06 06:00] VITALS: BP 134/80; PULSE 85; RESP 18; O2SAT 98
[2023-02-06 07:15] LABS: Hematocrit 45.5 % (37-53); Mean Corpuscular HGB Conc 32.7 g/dL (30-55); Mean Corpuscular Hemoglobin 31.1 pg (27-33); Mean Platelet Volume 9.8 fL (7.4-10.4); Platelet Count 346 10^3/cmm (157-399); Red Blood Count 4.79 10^6/uL (3.85-5.65); Red Cell Distribution Width 13.8 % (12.1-15.1); White Blood Count 11.08 10^3/uL (3.29-11.43)
[2023-02-06 07:45] LABS: Anion Gap 13.7 (5-19); Blood Urea Nitrogen 17 mg/dL (6-20); Calcium 9.3 mg/dL (8.5-10.5); Carbon Dioxide 27 mmol/L (22-29); Chloride 100 mmol/L (98-107); Glomerular Filtration Rate 77.9 mL/min (90-130); Glucose 114 mg/dL (65-115); Osmolality Calculated 284 mOsm/kg (285-295); Potassium 4.7 mmol/L (3.5-5.1); Sodium 136 mmol/L (136-145)
[2023-02-06 07:55] LABS: Absolute Eosinophils 0.6 10^3/cmm (0.0-0.7); Absolute Neutrophil 6.2 10^3/cmm (1.4-6.5); Absolute Segmented Neutrophil 6.1 10/cmm (1.6-7.1); Band Neutrophils Absolute 0.1 10^3/cmm (0.0-1.2); Eosinophils 5 %; Lymphocytes 29 %; Lymphocytes Absolute 3.2 10^3/cmm (1.2-3.4); Monocytes Absolute 0.9 10^3/cmm (0.1-0.6); Platelet Estimate Normal (Normal); Segmented Neutrophils 55 %; Total Cells Counted 100 (0-100)
[2023-02-06 08:14] LABS: Lithium 0.5 mmol/L (0.6-1.2)
[2023-02-06] MEDS: lithium carbonate 300 mg Capsule PO (10:30)
[2023-02-06 11:51] VITALS: BP 134/80; PULSE 85; RESP 18; O2SAT 98
--- NOTE | 2023-02-06 11:56 | P.NPUDS_ITS ---
Diagnoses at Discharge Discharge Diagnosis (1) Bipolar disorder current episode depressed: Status: Acute Reason for Visit Reason for Visit: SI Brief History: History of Present Illness Hever Lorenzo is a 52 year old transgender female who presented to the emergency department at [facility] in [facility] after the patient had been brought in by police as he had been found to be suicidal. The patient had stated that he was going to walk over to the [place] and throw himself off of the bridge and onto a truck but stated that he would rather go to the hospital instead. The patient was transferred to the neuropsychiatric unit and [facility] in [facility] for further evaluation and treatment. He reports that he had a significant argument with his daughter and was frustrated when he went to a bank and was only able to take out $50 and became increasingly frustrated to the point that he felt like he was going to end his life. He reports a history of mood swings and endorsed a past history of manic symptoms. He endorses a history of racing thoughts decreased need for sleep and intense periods of irritability. He also reports a history of depressed mood with reports of previous episodes of depression. He reports that he had previously been diagnosed with bipolar disorder and had not been on medications for several years. Patient reports that he had previously used methamphetamine to stay awake but states that he stopped using several months ago. He reports recently moving back to [place] after spending the last 2 years living in [place] where he was frequently homeless. Patient endorses current sleep continuity disruption. He reports a history of infrequent suicidal thoughts as well. He reports that the best medication that it ever helped him in the past was lithium. He endorses having periods where he has intense bursts of high energy with diminished need for sleep and intense grandiose ideas that may last up to a week. His reported having bipolar disorder for many years of his life. Inpatient hospitalizations: He reports several hospitalizations in adulthood including many recent hospitalizations and [facility] and also reports previously of having been hospitalized in [facility] more than 2 years ago. He had reported a history of suicide attempts. He had reported previous d iagnosis of bipolar disorder. Outpatient psychiatric history: None currently Drug and alcohol history: He reports no active drug use although he had reported having used methamphetamine in the past and reports active cannabis use. He reports no history of drug or alcohol treatment. Medical history: None Surgical history: None Allergies: No known drug allergies history: The patient received honorable discharge and served time in the [facility] from [id number]. Family psychiatric history: Unknown Current medications: None Social history: Patient was born in [facility] and raised by his biological parents until his parents at the age of 12. He had reported having graduated from [employer] up to high school and had attended some college. He had also finished attending [employer]. He is reported to be identified as a transgender female. He reports having previously been and currently lives with his ex- and has a 23-year-old daughter who has significant addiction issues. He did not report any history of sexual physical or emotional abuse. He reports he is currently on disability for some medical issues associated with mercury exposure during his time service. Hospital Course Hospital Course During the hospitalization, the patient had routine laboratory studies which were within normal limits except for a few outliers.? Additionally, there was a general medical evaluation which was also within normal limits and revealed no new acute processes.? At the time of discharge, lethality was denied and psychosis was resolving.? Mood and anxiety were well managed.? The patient endorsed a plan to avoid all drugs of abuse and follow up with the aftercare recommendations of the treatment team.? The patient was evaluated and deemed to be absent credible lethality and had achieved the maximum benefit from an inpatient hospitalization, and so was discharged.?[place] was initiated and titrated to a dose of 300mg in am, and 450mg at night with a lithium level of.5 on discharge and noted improvement in manic symptoms and depressive symptoms. Involuntary Hold Information 96 Hour Hold: 96 Hour Involuntary Admission: No Mental Status Exam MSE Comments: She is a casually dressed thin white female who appeared her stated age. She was pleasant and cooperative on interview. Her speech was normal in regards to rate rhythm and volume. There was no evidence of any abnormal involuntary motor movements tics or tremors appreciated. There is no evidence of psychomotor agitation or psychomotor retardation. Her mood was described as good on discharge. Her affect was brighter on discharge. Her thought process was linear logical and goal-directed. Her thought content showed no evidence of active homicidal ideation. She had endorsed no suicidal ideation with no plan. She did not appear to be responding to internal stimuli. There was no clear evidence of delusional thinking. Her insight was fair. Her judgment was improved. Her impulse control was fair. Her recent and remote memory appear grossly intact. Discharge Data Studies Completed and Pending: Pending at discharge Category Date Time Status Urine Culture [facility] 02/04/23 16:45 Results Laboratory Results WBC 11.08 10^3/uL (3. 29-11.43) 02/06/23 07:06 RBC 4.79 10^6/uL (3.8 5-5.65) 02/06/23 07:06 Hgb 14.90 g/dL (11.27 -16.99) 02/06/23 07:06 Hct 45.5 % (37-53) 02/06/23 07:06 MCV 95.0 fl (82-101) 02/06/23 07:06 MCH 31.1 pg (27-33) 02/06/23 07:06 MCHC 32.7 g/dL (30-55) 02/06/23 07:06 RDW 13.8 % (12.1-15.1 ) 02/06/23 07:06 Plt Count 346 10^3/cmm (157 -399) 02/06/23 07:06 MPV 9.8 fL (7.4-10.4) 02/06/23 07:06 Total Counted 100 (0-100) 02/06/23 07:06 Atypical Lymphs % 0.0 % (0-5) 02/06/23 07:06 Absolute Neutrophi ls 6.2 10^3/cmm (1.4 -6.5) 02/06/23 07:06 Segmented Neutroph ils 55 % 02/06/23 07:06 Abs Segm Neuts (Ma n) 6.1 10/cmm (1.6-7 .1) 02/06/23 07:06 Band Neutrophils 1.0 % 02/06/23 07:06 Abs Band Neuts (Ma n) 0.1 10^3/cmm (0.0 -1.2) 02/06/23 07:06 Absolute Lymphocyt es 3.2 10^3/cmm (1.2 -3.4) 02/06/23 07:06 Lymphocytes (Manua l) 29 % 02/06/23 07:06 Monocytes (Manual) 8.0 % 02/06/23 07:06 Absolute Monocytes 0.9 10^3/cmm (0.1 -0.6) H 02/06/23 07:06 Eosinophils (Manua l) 5 % 02/06/23 07:06 Absolute Eosinophi ls 0.6 10^3/cmm (0.0 -0.7) 02/06/23 07:06 Basophils (Manual) 0.0 % 02/06/23 07:06 Absolute Basophils 0.0 10^3/cmm (0.0 -0.2) 02/06/23 07:06 Metamyelocytes 1.0 % 02/06/23 07:06 Myelocytes 1.0 % 02/06/23 07:06 Platelet Estimate Normal (Normal) 02/06/23 07:06 Sodium 136 mmol/L (136-1 45) 02/06/23 07:06 Potassium 4.7 mmol/L (3.5-5 .1) 02/06/23 07:06 Chloride 100 mmol/L (98-10 7) 02/06/23 07:06 Carbon Dioxide 27 mmol/L (22-29) 02/06/23 07:06 Anion Gap 13.7 (5-19) 02/06/23 07:06 BUN 17 mg/dL (6-20) 02/06/23 07:06 Creatinine 1.0 mg/dL (0.7-1. 2) 02/06/23 07:06 GFR Calculation 77.9 mL/min (90-1 30) L 02/06/23 07:06 Glucose 114 mg/dL (65-115 ) 02/06/23 07:06 Calculated Osmolal ity 284 mOsm/kg (285- 295) L 02/06/23 07:06 Calcium 9.3 mg/dL (8.5-10 .5) 02/06/23 07:06 Urine Color Straw (Yellow) 02/04/23 16:45 Urine Appearance Sl hazy (CLEAR) A 02/04/23 16:45 Urine pH 8 (5-7) H 02/04/23 16:45 Ur Specific Gravit y 1.015 (1.005-1.0 30) 02/04/23 16:45 Urine Protein Neg (Negative) 02/04/23 16:45 Urine Glucose (UA) Norm (Normal) 02/04/23 16:45 Urine Ketones Negative (Negati ve) 02/04/23 16:45 Urine Blood Neg (Negative) 02/04/23 16:45 Urine Nitrate Positive (Negati ve) H 02/04/23 16:45 Urine Bilirubin Neg (Negative) 02/04/23 16:45 Prot Sulfosalicyli c Acd Negative (Negati ve) 02/04/23 16:45 Urine Urobilinogen Norm mg/dL (Negat rossy) 02/04/23 16:45 Ur Leukocyte Machelle ase Negative (Negati ve) 02/04/23 16:45 Urine RBC None /hpf (0-2) 02/04/23 16:45 Urine WBC 10-15 /hpf (0-5) H 02/04/23 16:45 Ur Squamous Epith Cells Rare /hpf (0-5) 02/04/23 16:45 Amorphous Sediment Not Reportable 02/04/23 16:45 Urine Bacteria 3+ /hpf (NONE) H 02/04/23 16:45 [place] 0.5 mmol/L (0.6-1 .2) L 02/06/23 07:06 Vitals: Last Vital Signs Temp 96.2 F L 02/05/23 19:19 Pulse 85 02/06/23 11:51 Resp 18 02/06/23 11:51 BP 134/80 02/06/23 11:51 Pulse Ox 98 02/06/23 11:51 O2 Del Method Room Air 02/06/23 06:00 Discharge Plan Discharge Patient Disposition: Home Condition: Stable Prescriptions: New lithium carbonate 300 mg Capsule 300 mg PO DAILY 30 Days Qty: 60 1RF lithium carbonate 150 mg capsule 150 mg PO QPM Qty: 30 1RF Discharge Orders: Discharge Order (Routine); Ordered 02/06/23 Ordered By: Renny Byrd Referrals: [facility] - [facility] [Other] - 02/22/23 11:30 am (Intake appointment) [facility] [place] [Other] - 02/23/23 9:00 am (Psychiatry appointment with [facility]) Discharge Diet: Usual diet Discharge Activity: Resume usual activity Patient Instructions: [place] (By mouth), Bipolar Disorder (DC), Opioid Safety Discharge Attestations NPU Time Spent in Discharge Care*: less than 30 min Specific Discharge Activities: Specific discharge activities: educating patient and documenting/other paperwork Coding Level of Care Code Acute Code for Chg Fwd Diagnoses Bipolar disorder current episode depressed F31.30
== END 2023-02-06 12:53 | disposition home or self-care (01) | DRG 885 ==
PROVIDERS: Admitting Provider Psychiatry & Neurology Psychiatry; Visit Provider Psychiatry & Neurology Psychiatry
DX: F31.9 Bipolar disorder, unspecified (principal); R45.851 Suicidal ideations; F64.0 Transsexualism; F15.91 Other stimulant use, unspecified, in remission
CPT/HCPCS: 36415; 80048; 80178; 81001; 85007; 85027; 87077; 87086; 87186; 96372; 97150; 97165; J2550; Q0162